=== PATIENT | female | born 1980 | race Caucasian/White ===

== ENCOUNTER 2020-07-25 08:00 | Outpatient (CLI) | payer OTHER ==
[2020-07-25 20:50] LABS: CHLAMYDIA TRACHOMATIS DNA NEGATIVE (NEGATIVE); NEISSERIA GONORRHOEAE DNA NEGATIVE (NEGATIVE); TRICHOMONAS VAGINALIS DNA NEGATIVE (NEGATIVE)
== END 2020-07-25 23:59 | disposition home or self-care (01) ==
LOC: LAB.WCP 08:00
PROVIDERS: ATTEND Family Medicine
DX: Z20.2 Contact with and (suspected) exposure to infections with a predominantly sexual mode of transmission (principal)
CPT/HCPCS: 87491; 87591; 87661

== ENCOUNTER 2020-08-28 09:50 | Emergency (ER) | payer OTHER ==
[2020-08-28 10:14] LABS: BASOPHILS % (AUTO) 0.3 %; EOSINOPHILS # (AUTO) 0.1 10^3/uL (0.0-0.7); EOSINOPHILS % (AUTO) 0.8 %; HCT - HEMATOCRIT 41.9 % (37.0-47.0); HGB - HEMOGLOBIN 13.9 g/dL (12.0-16.0); LYMPHOCYTES # (AUTO) 1.3 10^3/uL (1.5-3.5); LYMPHOCYTES % (AUTO) 17.4 %; MEAN CORPUSCULAR HEMOGLOBIN 30.8 pg (27.0-31.0); MEAN CORPUSCULAR HGB CONC 33.2 g/dL (32.0-36.0); MEAN CORPUSCULAR VOLUME 92.9 fL (81.0-99.0); MEAN PLATELET VOLUME 10.3 fL (7.9-10.8); MONOCYTES # (AUTO) 0.5 10^3/uL (0.0-1.0); NEUTROPHILS # (AUTO) 5.4 10^3/uL (1.5-6.6); NEUTROPHILS % (AUTO) 74.2 %; PLT - PLATELET COUNT 251 10^3/uL (130-450); RED BLOOD COUNT 4.51 10^6/uL (4.20-5.40); RED CELL DISTRIBUTION WIDTH 12.1 % (12.0-15.0); WHITE BLOOD COUNT 7.2 x10^3/uL (4.8-10.8)
[2020-08-28 10:23] LABS: ALBUMIN/GLOBULIN RATIO 1.3 (1.0-2.2); BILIRUBIN,TOTAL 1.4 mg/dL (0.2-1.0); CREATININE 0.7 mg/dL (0.4-1.0)
[2020-08-28] MEDS ORDERED: KETOROLAC 30 MG/ML VIAL IVP STA (10:24)
--- NOTE | 2020-08-28 10:24 | ED Physician Documentation ---
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 Seen at urgent care where reportedly was tested and negative for strep. She is fully immunized against Covid. She does have a history of ovarian cysts and feels like this might be similar. No menses in the last year due to IUD in situ. Review of Systems Ten Systems: 10 systems reviewed and negative Constitutional: reports: Chills, Myalgias. denies: Fever Nose: denies: Rhinorrhea / runny nose Throat: reports: Sore throat GI: reports: Abdominal Pain. denies: Nausea PD PAST MEDICAL HISTORY - Present Medications Home Medications: Ambulatory Orders Medication Instructions Recorded Confirmed No Known Home Medications 08/28/20 08/28/20 - Allergies Allergies/Adverse Reactions: Allergies Allergy/AdvReac Type Severity Reaction Status Date / Time No Known Drug Allergies Allergy Verified 08/28/20 10:33 PD ED PE NORMAL - Vitals Vital signs reviewed: Yes - General General: Alert and oriented X 3, No acute distress - HEENT HEENT: PERRL, EOMI - Neck Neck: Supple, no meningeal sign, No bony TTP - Cardiac Cardiac: RRR, No murmur - Respiratory Respiratory: No respiratory distress, Clear bilaterally - Abdomen Abdomen: Normal bowel sounds, Soft, Other (Mild right lower quadrant tenderness without surgical signs) - Back Back: No CVA TTP, No spinal TTP - Derm Derm: Normal color, Warm and dry - Neuro Neuro: Alert and oriented X 3, Normal speech Results - Vitals Vitals: Vital Signs - 24 hr 08/28/20 08/28/20 10:13 10:31 Temperature 37.1 C 36.7 C Heart Rate 70 74 Respiratory 14 16 Rate Blood Pressure 114/70 114/76 O2 Saturation 100 100 Oxygen O2 Source Room air - Labs Labs: Laboratory Tests 08/28/20 08/28/20 08/28/20 10:05 10:05 10:15 WBC 7.2 RBC 4.51 Hgb 13.9 Hct 41.9 MCV 92.9 MCH 30.8 MCHC 33.2 RDW 12.1 Plt Count 251 MPV 10.3 Neut # (Auto) 5.4 Lymph # (Auto) 1.3 L [place] # (Auto) 0.5 Eos # (Auto) 0.1 Baso # (Auto) 0.0 Absolute Nucleated RBC 0.00 Nucleated RBC % 0.0 Sodium 136 Potassium 4.0 Chloride 101 Carbon Dioxide 27 Anion Gap 8.0 BUN 11 Creatinine 0.7 Estimated GFR (MDRD) 94 Glucose 98 Calcium 9.0 Total Bilirubin 1.4 H AST 18 ALT 15 Alkaline Phosphatase 64 Total Protein 7.0 Albumin 4.0 Globulin 3.0 Albumin/Globulin Ratio 1.3 Lipase 30 Urine Color YELLOW Urine Clarity CLEAR Urine pH 7.0 Ur Specific [place] 1.010 Urine Protein NEGATIVE Urine Glucose (UA) NEGATIVE Urine Ketones NEGATIVE Urine Occult Blood NEGATIVE Urine Nitrite NEGATIVE Urine Bilirubin NEGATIVE Urine Urobilinogen 0.2 (NORMAL) Ur Leukocyte Esterase NEGATIVE Ur Microscopic Review NOT INDICATED Urine Culture Comments NOT INDICATED Urine HCG, Qual NEGATIVE PD MEDICAL DECISION MAKING - ED course ED course: 39-year-old woman presents with nonspecific viral type syndrome, but also some right lower quadrant pain so was sent here from urgent care for concern for appendicitis. Work-up here was negative with normal labs and CT. She is fully immunized against Covid but the myalgias fatigue and headache are consistent with a viral process so Covid test will be run out of an abundance of caution. Departure - Departure Disposition: 01 Home, Self Care Clinical Impression: Viral syndrome Abdominal pain Qualifiers: Abdominal location: right lower quadrant Qualified Code(s): R10.31 - Right lower quadrant pain Condition: Good Record reviewed to determine appropriate education?: Yes Instructions: ED Abdominal Pain Unkn Cause Comments: As discussed, it seems like you have a nonspecific viral type syndrome. Given the right lower quadrant pain we checked for cysts and appendicitis and there is no evidence of either. Please return if worsening or if not better over the next day. You have a Covid test pending. You need to self quarantine until the result is done and negative. Do not leave your house. Do not get near anybody. The results should be done in 48 to 72 hours. We will call with a positive result, the fastest way to get a negative result for confirmation though is to go to the hospital website at [email or web address], click on the [facility] [employer] tab and sign up for the patient portal. If any friends or family get sick and would like to have a Covid test done, but do not have signs or symptoms that would necessitate being hospitalized, we encourage testing through our coronavirus swabbing station, call [phone] to schedule an appointment. Forms: Activity restrictions
[2020-08-28] MEDS ORDERED: IOVERSOL 320 100 ML VIAL IVP ONE ×2 (10:27→11:46)
[2020-08-28 10:33] VITALS: BP 114/76
[2020-08-28 10:39] LABS: BILIRUBIN,URINE NEGATIVE (NEGATIVE); GLUCOSE, URINE (UA) NEGATIVE (NEGATIVE); KETONES,URINE (UA) NEGATIVE (NEGATIVE); LEUKOCYTE ESTERASE, URINE NEGATIVE (NEGATIVE); NITRITE,URINE NEGATIVE (NEGATIVE); OCCULT BLOOD,URINE NEGATIVE (NEGATIVE); PROTEIN,URINE NEGATIVE (NEGATIVE); UROBILINOGEN,URINE 0.2 (NORMAL) E.U./dL (NORMAL)
[2020-08-28 10:54] LABS: CLARITY,URINE CLEAR (CLEAR); HCG UR QUAL NEGATIVE
--- NOTE | 2020-08-28 11:02 | CT Report ---
PROCEDURE: Abdomen/Pelvis W INDICATIONS: Right lower quadrant abdominal pain. CONTRAST: IV CONTRAST: Optiray 320 ml: 100 PO CONTRAST: *NO PO CONTRAST TECHNIQUE: After the administration of intravenous contrast, 5 mm thick sections acquired from the diaphragms to the symphysis. 5 mm thick coronal and sagittal reformats were acquired. For radiation dose reducti on, the following was used: automated exposure control, adjustment of mA and/or kV according to mine ent size. COMPARISON: None. FINDINGS: Image quality: Excellent. ABDOMEN: Lung bases: Lung bases are clear. Heart size is normal. Solid organs: Small right hepatic lobe hypodensity is too small to characterize, likely cyst or heman gioma. Otherwise normal appearance of the liver and spleen. Gallbladder is normal Biliary system is non dilated. Pancreas enhances normally. No adrenal nodules. Kidneys demonstrate normal size and e nhancement, without hydronephrosis. Peritoneum and bowel: No abnormally dilated or thickened loops of bowel. Normal nondilated air-contai thomas appendix without wall thickening or adjacent inflammatory changes. No pericolonic or mesenteric fat stranding. Pancolonic distribution of formed stool. No free fluid or pneumoperitoneum. Nodes and vessels: No retroperitoneal or mesenteric adenopathy by size criteria. Aorta and inferior vena cava are normal in size. Miscellaneous: No ventral hernias. PELVIS: Genitourinary: Bladder wall thickness is normal. IUD in the uterus. Both ovaries are unremarkable. Trace presumably physiologic free fluid in the pelvis. Miscellaneous: No inguinal hernias or adenopathy. Bones: No suspicious bony lesions. No vertebral body compression fractures. IMPRESSION: No acute finding. Reviewed by: Luc Fox MD on 08/28/2020 11:00 AM PDT Approved by: Luc Fox MD on 08/28/2020 11:00 AM PDT Station ID: [id number]
[2020-08-28 13:03] LABS: B. PARAPERTUSSIS- RESP PCR PAN NOT DETECTED; B. PERTUSSIS- RESP PCR PANEL NOT DETECTED; C. PNEUMONIAE- RESP PCR PANEL NOT DETECTED; CORONAVIRUS 229E-RESP PCR NOT DETECTED; CORONAVIRUS HKU1-RESP PCR NOT DETECTED; CORONAVIRUS NL63-RESP PCR NOT DETECTED; CORONAVIRUS OC43-RESP PCR NOT DETECTED; HUMAN METAPNEUMOVIRUS NOT DETECTED; INFLUENZA A- RESP PCR PANEL NOT DETECTED; INFLUENZA B - RESP PCR PANEL NOT DETECTED; M. PNEUMONIAE- RESP PCR PANEL NOT DETECTED; PARAINFLUENZA VIRUS 1 NOT DETECTED; PARAINFLUENZA VIRUS 2 NOT DETECTED; PARAINFLUENZA VIRUS 3 NOT DETECTED; PARAINFLUENZA VIRUS 4 NOT DETECTED; RHINOVIRUS/ENTEROVIRUS NOT DETECTED; RSV- RESP PCR PANEL NOT DETECTED; SARS-CoV-2 -RESP PCR PANEL NOT DETECTED
== END 2020-08-28 11:30 | disposition home or self-care (01) ==
LOC: ED 09:50
DX: R10.31 Right lower quadrant pain (principal); Z20.822 Contact with and (suspected) exposure to COVID-19
CPT/HCPCS: 0202U; 36415; 74177; 80053; 81003; 81025; 83690; 85025; 96374; 99284; Q9967; 81001; 87086

== ENCOUNTER 2021-10-28 08:00 | Outpatient (CLI) | payer OTHER ==
[2021-10-28 19:33] LABS: BACTERIAL VAGINOSIS DNA POSITIVE (NEGATIVE); CANDIDA GLABRATA DNA NEGATIVE (NEGATIVE); CANDIDA GROUP DNA POSITIVE (NEGATIVE); CANDIDA KRUSEI DNA NEGATIVE (NEGATIVE); TRICHOMONAS VAGINALIS DNA NEGATIVE (NEGATIVE)
[2021-10-28 20:01] LABS: CHLAMYDIA TRACHOMATIS DNA NEGATIVE (NEGATIVE); NEISSERIA GONORRHOEAE DNA NEGATIVE (NEGATIVE)
== END 2021-10-28 23:59 | disposition home or self-care (01) ==
LOC: LAB.N 08:00
PROVIDERS: ATTEND Physician Assistant
DX: N76.0 Acute vaginitis (principal)
CPT/HCPCS: 81514; 87491; 87591; 87661

== ENCOUNTER 2021-12-16 09:32 | Emergency (ER) | payer OTHER ==
[2021-12-16 10:14] LABS: BASOPHILS % (AUTO) 0.4 %; EOSINOPHILS # (AUTO) 0.1 10^3/uL (0.0-0.7); HCT - HEMATOCRIT 40.7 % (37.0-47.0); HGB - HEMOGLOBIN 13.8 g/dL (12.0-16.0); LYMPHOCYTES # (AUTO) 1.2 10^3/uL (1.5-3.5); LYMPHOCYTES % (AUTO) 17.8 %; MEAN CORPUSCULAR HEMOGLOBIN 31.5 pg (27.0-31.0); MEAN CORPUSCULAR HGB CONC 33.9 g/dL (32.0-36.0); MEAN CORPUSCULAR VOLUME 92.9 fL (81.0-99.0); MEAN PLATELET VOLUME 10.2 fL (7.9-10.8); MONOCYTES # (AUTO) 0.5 10^3/uL (0.0-1.0); MONOCYTES % (AUTO) 6.7 %; NEUTROPHILS # (AUTO) 5.1 10^3/uL (1.5-6.6); PLT - PLATELET COUNT 215 10^3/uL (130-450); RED BLOOD COUNT 4.38 10^6/uL (4.20-5.40); RED CELL DISTRIBUTION WIDTH 12.6 % (12.0-15.0); WHITE BLOOD COUNT 6.9 x10^3/uL (4.8-10.8)
--- NOTE | 2021-12-16 10:14 | XRAY Report ---
PROCEDURE: Chest 1 View X-Ray INDICATIONS: chest pain TECHNIQUE: One view of the chest was acquired. COMPARISON: None FINDINGS: Surgical changes and devices: None. Lungs and pleura: No pleural effusions or pneumothorax. Lungs are clear. Mediastinum: Mediastinal contours appear normal. Heart size is normal. Bones and chest wall: No suspicious bony lesions. Overlying soft tissues appear unremarkable. IMPRESSION: No acute cardiopulmonary findings. Reviewed by: Dianna Bauer MD on 12/16/2021 10:13 AM PDT Approved by: Dianna Bauer MD on 12/16/2021 10:13 AM PDT Station ID: [id number]
[2021-12-16 10:29] LABS: ALBUMIN 3.9 g/dL (3.2-5.5); ALBUMIN/GLOBULIN RATIO 1.3 (1.0-2.2); BILIRUBIN,TOTAL 1.6 mg/dL (0.2-1.0); CREATININE 0.7 mg/dL (0.4-1.0); POTASSIUM 3.9 mmol/L (3.5-5.0); TOTAL PROTEIN 6.9 g/dL (6.7-8.2)
--- NOTE | 2021-12-16 11:02 | ED Physician Documentation ---
PD HPI CHEST PAIN - Stated complaint Stated Complaint: CHEST PX - Chief complaint Chief Complaint: Cardiac - History obtained from History obtained from: Patient - History of Present Illness Timing - onset: Today (onset getting out of bed this morning of left anterior chest pain in pectoral area. Worse with shoulder movement and breathing. No cough nor wheezing. Pain significant and local in that area.) Timing - onset during: Rest (just getting up out of bed.) Timing - duration: Hours Timing - details: Abrupt onset, Still present, Other (she had been moving from one house to another over weekend, so lot of lifting and carrying, but did ot feel any injury during that time. Abrupt pain in left chest/pectoral this morning.) Quality: Aching, Sharp, Pain Location: Left chest (upper pectoral) Radiation: No: Neck, Back, Abdominal Improved by: Rest Worsened by: Inspiration, Movement, Palpation Associated symptoms: Shortness of air. No: Nausea, Feeling faint / dizzy, Gener al Weakness, Palpitations, Cough Similar symptoms before: Has not had sx before Recently seen: Not recently seen Review of Systems Constitutional: denies: Fever, Chills Nose: denies: Rhinorrhea / runny nose, Congestion Throat: denies: Sore throat Cardiac: denies: Palpitations, Pedal edema, Calf pain Respiratory: denies: Cough GI: denies: Abdominal Pain, Nausea, Vomiting Skin: denies: Rash, Lesions Neurologic: denies: Focal weakness, Numbness, Near syncope PD PAST MEDICAL HISTORY - Past Medical History Past Medical History: Yes Cardiovascular: None Respiratory: None Endocrine/Autoimmune: None 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 Living Arrangement: reports: At home - Social History Does the pt smoke?: Yes Smoking Status: Current some day smoker Does the pt drink ETOH?: Yes Does the pt have substance abuse?: No - Family History Family history: reports: Venous thromboembolism, CVA - Immunizations Immunizations are current?: Yes PD ED PE NORMAL - Vitals Vital signs reviewed: Yes - General General: Alert and oriented X 3, Well developed/nourished - Neck Neck: Supple, no meningeal sign, No adenopathy - Cardiac Cardiac: RRR, No murmur - Respiratory Respiratory: Clear bilaterally, Other (left upper pectoral area with muscular tenderness to palpation. No rash nor sores. ) - Abdomen Abdomen: Soft, Non tender - Back Back: No CVA TTP - Derm Derm: Normal color, Warm and dry - Extremities Extremities: Normal ROM s pain, No edema, No calf tenderness / cord - Neuro Neuro: Alert and oriented X 3, No motor deficit, Normal speech Results - Vitals Vitals: Oxygen O2 Source Room air - EKG (time done) 09:36 Rate: Rate (enter#) (64) Rhythm: NSR [place]: Normal Intervals: Normal [place] QRS: Normal Ischemia: Normal ST segments. No: ST elevation c/w ischemia, ST depression Compare to prior EKG: Old EKG unavailable - Labs Labs: Laboratory Tests 12/16/21 12/16/21 12/16/21 10:09 10:09 10:09 WBC 6.9 RBC 4.38 Hgb 13.8 Hct 40.7 MCV 92.9 MCH 31.5 H MCHC 33.9 RDW 12.6 Plt Count 215 MPV 10.2 Neut # (Auto) 5.1 Lymph # (Auto) 1.2 L [place] # (Auto) 0.5 Eos # (Auto) 0.1 Baso # (Auto) 0.0 Absolute Nucleated RBC 0.00 Nucleated RBC % 0.0 Sodium 137 Potassium 3.9 Chloride 103 Carbon Dioxide 28 Anion Gap 6.0 BUN 14 Creatinine 0.7 Estimated GFR (MDRD) 93 Glucose 82 Calcium 9.0 Total Bilirubin 1.6 H AST 21 ALT 19 Alkaline Phosphatase 52 Troponin I High Sens < 2.3 L Total Protein 6.9 Albumin 3.9 Globulin 3.0 Albumin/Globulin Ratio 1.3 Lipase 36 - Rads (name of study) chest xray Radiology: Prelim report reviewed (no cardiopulmonary acute findings), See rad report PD MEDICAL DECISION MAKING - ED course Complexity details: reviewed results, considered differential (seems muscular. Had been moving houses over weekend, so lifting and carrying. States FH of clotting disorders of unknown type (mother and GM with CVAs young age). She does not have finding of concern for VTE and PERC is 0. Has findings c/w muscular. ), d/w patient Departure - Departure Disposition: 01 Home, Self Care Clinical Impression: Anterior chest wall pain Condition: Stable Record reviewed to determine appropriate education?: Yes Instructions: ED Strain Chest Wall Follow-Up: SATHYA BLOUNT DO [Primary Care Provider] - Prescriptions: Ibuprofen [Motrin] 600 mg PO TID PRN #25 tab PRN Reason: Pain HYDROcod/ACETAM 5/325 [[place] 5/325] 1 ea PO Q6H PRN #15 tablet PRN Reason: Pain Comments: Your EKG, chest x-ray, blood tests are normal without any signs of heart injury, heart failure, collapsed lung, pneumonia, anemia or obvious infections. Presume muscular chest wall pain given the location with some palpable tenderness and pain with breathing. At this point I would treat it with anti-inflammatories such as ibuprofen 600 mg 3 times daily with food for the next several days to week. To that add Tylenol every 4-6 hours if needed for pain or hydrocodone if needed for worse pain in the short-term. I would anticipate improvement over the next few days. Given your family history of clotting at early ages, I did order some of the blood test to assess for hypercoagulable conditions. The results of these will take 2 or 3 days as they are send out for our hospital. Your primary care will need to track up on the results. You do not have findings to suggest a blood clot at this time. Recheck if not improved well over the next few days. Activity as tolerated with avoiding heavy lifting and such over the next few days. I sent your prescriptions to the [facility]. I am prescribing a short course of narcotic pain medication for you. These are potentially dangerous and addictive medications that should be used carefully. These medications may constipate you. Take an [id number] stool softener such as docusate twice daily with plenty of water while taking these medications. If you go 24 hours without a bowel movement, take [id number] MiraLAX, per package instructions. Do not drink or drive while taking these medications. If you received narcotic or sedating medications while in the emergency department do not drive for 24 hours. Store this medication in a safe, secure place and out of reach of children. It is a violation of federal law to give or sell this medication to another person or to use in a manner other than prescribed. The ED will not refill narcotic prescriptions, including prescriptions lost or stolen. You can dispose of unwanted medications at the [facility]'s office or at several pharmacies such as [email or web address]. Discharge Date/Time: 12/16/21 12:18
[2021-12-16] MEDS ORDERED: HYDROcod/ACETAM 5/325 MG TABLET PO STA (11:23)
[2021-12-16] MEDS ORDERED: IBUPROFEN 600 MG TABLET PO STA (11:23)
[2021-12-16 12:07] VITALS: BP 109/98
== END 2021-12-16 12:18 | disposition home or self-care (01) ==
LOC: ED 09:32
DX: R07.89 Other chest pain (principal); F17.200 Nicotine dependence, unspecified, uncomplicated
CPT/HCPCS: 36415; 71045; 80053; 83690; 84484; 85025; 85300; 85303; 85306; 85598; 85613; 85732; 93005; 99284; A9270

== ENCOUNTER 2022-01-19 16:49 | Outpatient (CLI) | payer OTHER ==
--- NOTE | 2022-01-19 21:42 | MRI Report ---
PROCEDURE: Abdomen W/WO INDICATIONS: HEPATOMEGALY CONTRAST: IV CONTRAST: Gadavist ml: 7.3 TECHNIQUE: Coronal ultra fast SE, axial 2D spoiled GE in- and [id number]; axial breath-hold T2 fast SE. Dynam ic axial ultra fast GE during the administration of contrast; post-contrast coronal ultra fast GE or 2D spoiled GE with fat saturation from the hepatic dome to the iliac crests. Optional diffusion weig hted imaging and ADC may be performed. COMPARISON: 08/28/2020 CT abdomen and pelvis FINDINGS: The liver measures approximately 16 cm craniocaudal dimension at the mid clavicular line and approxim ately 21 cm maximum transverse axial dimension. This is within normal limits for size. No findings of hepatic steatosis or cirrhosis. There are few nonenhancing simple hepatic cysts, largest in the left hepatic lobe adjacent to the fissure for the ligament teres measuring 2.4 cm. No solid or enhancing liver mass. Patent portal and hepatic veins without filling defect. No biliary duct dilatation or biliary duct filling defect identified. Normal appearance of the pancreas without abnormal enhancement or pancreatic ductal dilatation. Normal appearance of both kidneys and adrenal glands. No acute enteric abnormality. No ascites. Regional marrow signal is normal. IMPRESSION: Normal appearance of the liver without hepatomegaly, steatosis, or other significant abnormality. Reviewed by: Luc Fox MD on 01/19/2022 9:41 PM PDT Approved by: Luc Fox MD on 01/19/2022 9:41 PM PDT Station ID: [id number]
== END 2022-01-19 16:50 | disposition home or self-care (01) ==
LOC: DI 16:49
DX: R16.0 Hepatomegaly, not elsewhere classified (principal)
CPT/HCPCS: 74183; A9585